=== PATIENT | female | born 1970 | race Caucasian/White ===

== ENCOUNTER 2020-03-06 12:15 | Emergency (ER) | payer OTHER ==
[~2020-03-06] VITALS: Ht 172.7 cm; Wt 95.2 kg
[~2020-03-06 12:15] MED LIST: LUTERA1 EACH PO; NORCO 5-325 TA1 EACH PO; PENICILLIN V P500 MG PO
== END 2020-03-06 14:35 | disposition home or self-care (01) ==
LOC: ED 12:15
DX: R10.10 Upper abdominal pain, unspecified (principal)
CPT/HCPCS: 80053; 83690; 85025; 99284